=== PATIENT | male | born 1985 | race Caucasian/White ===

== ENCOUNTER 2019-11-13 17:53 | Observation (INO) ==
--- NOTE | 2019-11-13 18:24 | ERNOTE ---
Abdominal HPI - General Chief Complaint: Abdominal Pain Time Seen by Provider: 11/13/19 18:10 Source: patient Exam Limitations: no limitations - Immun/Allergies/Home Medications Allergies/Adverse Reactions: Allergies No Known Allergies Allergy (Unverified 12/29/12 17:30) Home Medications: HOME MEDICATIONS NK [No Home Medication] 12/29/12 [Last Taken Unknown] - History of Present Illness Narrative: Patient is here for abdominal pain. He states that he woke up at 3 AM and noticed some epigastric pain, the pain is dull and mild at rest, worse with deep breaths or certain movements. He denies any nausea or vomiting, has a decreased appetite, denies any diarrhea. He never had similar symptoms, no prior abdominal issues, no other recent medical problems. Date (Duration): 11/13/19 Time (Timing): 03:00 Timing: constant Quality: mild, dullness Activities at Onset: sleep Modifying Factors - (Improves): Present: rest, other - shallow breathing Modifying Factors - (Worsens): Present: breathing, movement Associated Symptoms: Absent: back pain, chest pain, fever/chills, nausea, shortness of breath Prior Abdominal Problems: Present: none. Absent: recent trauma, similar symptoms Prior Treatment: Absent: recently seen, currently on antibiotics Review of Systems - Review of Systems Constitutional: Absent: recent illness, fever ENT: Absent: nose congestion, nasal drainage, sore throat Cardiology: Absent: chest pain Gastrointestinal/Abdominal: Present: See HPI. Absent: nausea, vomiting Genitourinary: Absent: frequency, dysuria Musculoskeletal: Absent: back pain Neurological: Absent: headache, weakness, numbness Medical History (Last Reviewed 11/13/19 @ 18:23 by Farhana Omer MD) No pertinent past medical history Surgical History: Surgical History (Last Reviewed 11/13/19 @ 18:23 by Farhana Omer MD) Hx of left knee surgery Family History: Family History (Last Updated 11/13/19 @ 18:09 by Minnie Griffin RN) Other Cancer Diabetes Social History: Tobacco: Smoking Status: Never smoker Physical Exam - Physical Exam General Appearance: Present: wd/wn, alert, no apparent distress Respiratory: Present: no respiratory distress, normal breath sounds, no accessory muscle use, chest nontender, lungs clear Cardiovascular/Chest: Present: regular rate, rhythm, no murmur Gastrointestinal/Abdominal: Present: normal bowel sounds, nondistended, soft, tenderness - epigastric. Absent: guarding, rebound Back Exam: Present: normal inspection, no CVA tenderness, no vertebral tenderness Extremity Exam: Present: no edema Neurological Exam: Present: alert, oriented, normal mood/affect Skin Exam: Present: normal color, warm/dry Progress - Results and Orders Patient's Lab Results:: I have reviewed the patient's lab results. - Vital Signs Patient's Vital Signs:: I have reviewed the patient's vital signs. Vital Signs: Vital Signs 11/13/19 18:03 Temperature 37.1 C Pulse Rate 82 Respiratory Rate 20 Blood Pressure 150/99 H O2 Sat by Pulse Oximetry 98 - X-Ray X-Ray #1 X-Ray: abdomen - no acute changes Interpretation: Interp. by me - Progress/Reassessment Chief Complaint: Abdominal Pain Progress Note-Subjective: 11/13/19 19:39 discussed test results, patient started to feel light headed just prior to me coming in the room, rates pain as mild discussed need for hydration and staying NPO and recommended admission, patient agreed 11/13/19 19:[address] Fowler, okay to admit for observation for pancreatitis Departure Clinical Impression: Pancreatitis Qualifiers: Chronicity: acute Pancreatitis type: unspecified pancreatitis type Acute oneal creatitis complication: unspecified Qualified Code(s): K85.90 - Acute pancreatitis without necrosis or infection, unspecified - Departure Disposition: Home self-care Condition: Stable
[2019-11-13 18:33] LABS: Urine Appearance Clear (CLEAR); Urine Bilirubin Negative (NEGATIVE); Urine Blood Negative /ul (NEGATIVE); Urine Color Yellow; Urine Ketone Negative (NEGATIVE); Urine Protein Negative (NEGATIVE); Urine Urobilinogen Normal (NORMAL); Urine pH 7.5 pH (5.0-7.0)
[2019-11-13 18:34] LABS: Urine Bacteria None Seen; Urine Nitrite Negative (NEGATIVE); Urine RBC None Seen /hpf (0-5); Urine WBC 0-5 /hpf (0-5)
[2019-11-13 18:51] LABS: Hematocrit 47.4 % (42.0-52.0); Hemoglobin 15.9 gm/dL (13.5-18.0); Mean Corpuscular Hemoglobin 29.2 pg (27-31); Mean Corpuscular Hgb Conc 33.5 g/dl (32-36); Mean Platelet Volume 9.3 fl (8-11.3); Neutrophil # 8.8 K/mm3 (1.3-6.0); Neutrophil % 75.6 % (42-75.0); Platelet Count 240 K/mm3 (150-450); Red Blood Count 5.45 M/mm3 (4.7-6.0); Red Cell Distribution Width 12.3 % (11.5-14.0); White Blood Count 11.7 K/mm3 (4.0-10.5)
[2019-11-13 19:01] LABS: Albumin * 4.3 gm/dl (3.4-5.0); Anion Gap 12.6 mmol/L (6.8-13.8); BUN/Creatinine Ratio 12.5 (9.0-21.6); Bilirubin, Total 0.4 mg/dL (0.0-1.1); Ca. Corrected For Albumin 8.9 mg/dL (8.4-10.2); Calcium * 9.5 mg/dL (7.9-10.9); Carbon Dioxide 29.2 mmol/L (24-32.6); Potassium 3.8 mmol/L (3.4-4.6); Total Protein 8.5 gm/dL (6.2-8.2)
[2019-11-13] MEDS ORDERED: NORMAL SALINE 1,000 ML IV ONE ×2 (19:40→20:50)
[2019-11-13] MEDS ORDERED: HYDROmorphone HCL 1 MG/ML DISP.SYRIN IV ONE (19:40)
[2019-11-13] MEDS ORDERED: ONDANSETRON HCL/PF 2 MG/ML VIAL IV PRN (19:53)
[2019-11-13] MEDS ORDERED: HYDROmorphone HCL 1 MG/ML DISP.SYRIN IV PRN (19:53)
[2019-11-13] MEDS ORDERED: ACETAMINOPHEN 325 MG TABLET PO PRN (21:29)
[2019-11-13] MEDS ORDERED: ONDANSETRON HCL 4 MG TABLET PO PRN (21:30)
--- NOTE | 2019-11-13 22:00 | HP ---
Chief Complaint - Chief Complaint Date of Service: 11/13/19 Time of Service: 21:50 Chief Complaint: I have epigastric pain since this morning. History of Present Illness: 33-year-old male with no significant past medical or social history was evaluated in the ER for persistent epigastric pain that started at 3 AM this morning. Patient reports he went to bed in his usual state of health last night but was suddenly awakened with a dull ache in his epigastric region during the night. He denies having this pain before and has no idea what could have led to the development of the symptoms. Patient denies drinking alcohol or smoking or any illicit drug use. He does not take any routine or symptomatic medications. Patient denies any nausea or vomiting or any diarrhea, he also denies any fever or chills. Once in the ER he became lightheaded and was found to be mildly dehydrated. Therefore decision to keep the patient for observation and for treatment with IV hydration and pain medications was made. Medical History (Last Reviewed 11/13/19 @ 21:15 by Paulina Cameron RN) No pertinent past medical history Surgical History: Surgical History (Last Reviewed 11/13/19 @ 21:15 by Paluina Cameron RN) Hx of left knee surgery Family History: Family History (Last Reviewed 11/13/19 @ 21:15 by Paulina Cameron RN) Other Cancer Diabetes Social History: Tobacco: Smoking Status: Never smoker Peds Patient Hx - Developmental: No Pertinent Hx Peds Patient Hx - Medical: No Pertinent Hx Peds Patient Hx - Cardiac/Respiratory: No Pertinent Hx Peds Patient Hx - Surgical: No Surgical History Patient History - Cancer: No Hx of Cancer Review Of Systems (GEN) - Review of Systems Generalized/Overall Review: Present: No Symptoms Reported EENTM: Present: No Symptoms Reported Respiratory: Present: No Symptoms Reported Cardiac: Present: No Symptoms Reported Abdominal: Present: Abdominal Pain Genitourinary: Present: No Symptoms Reported Musculoskeletal: Present: No Symptoms Reported Neurological: Present: No Symptoms Reported Skin: Present: No Symptoms Reported Endocrine: Present: No Symptoms Reported Allergies/Adverse Reactions: Allergies Allergy/AdvReac Type Severity Reaction Status Date / Time No Known Allergies Allergy Unverified 12/29/12 17:30 Home Medications: HOME MEDICATIONS NK [No Home Medication] 12/29/12 [Last Taken Unknown] Exam - Exam Vital Signs: Vital Signs - Last Taken Temp 36.8 C 11/13/19 20:30 Pulse 70 11/13/19 20:30 Resp 17 11/13/19 20:30 BP 149/87 H 11/13/19 20:30 Pulse Ox 98 11/13/19 20:30 Constitutional: Present: Alert, Oriented x3, Cooperative, Well developed, Well nourished, No distress ENT Exam: Present: normal ENT inspection, hearing grossly normal, pharynx normal, TMs normal Eye Exam: bilateral eye: normal inspection, PERRL, EOMI Neck: Present: non-tender, full range of motion, supple, normal inspection, trachea midline Back Exam: Present: normal inspection, no CVA tenderness, no vertebral tenderness Breasts: Present: Exam deferred Respiratory: Present: chest non-tender, lungs clear, normal breath sounds, no respiratory distress, no accessory muscle use Cardiovascular/Chest: Present: normal peripheral pulses, regular rate, rhythm, no chest tenderness, no edema, no gallop, no JVD, no murmur, no rub Peripheral Pulses: femoral (R): 3+, femoral (L): 3+, dorsalis-pedis (R): 3+, dorsalis-pedis (L): 3+ Abdomen: Present: soft, nondistended, no rebound tenderness, no hepatospenomegaly, no masses, tender - Mild epigastric tenderness to palpation, hypoactive /Rectal: Present: Exam deferred Extremity: Present: normal range of motion, non-tender, normal inspection, no pedal edema, no calf tenderness, normal capillary refill, pelvis stable Skin Exam: Present: normal color, warm/dry, no cyanosis Lymphatic: Present: no adenopathy Neurologic: Present: 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, normal cerebellar test, no motor/sensory deficits, alert, normal mood/affect, oriented x 3 Appearance: Present: appropriate appearance, appropriate insight, neat, no memory impairment Eye contact: Present: cooperative, good eye contact, normal speech Thoughts: Present: normal thought pattern, no apparent hallucination Diagnostic Studies: Abnormal Lab Results 11/13/19 11/13/19 Range/Units 18:41 18:41 WBC 11.7 H (4.0-10.5) K/mm3 Immature Gran % (Auto) 0.80 H (0.001-0.429) % Immature Gran # (Auto) 0.09 H (0.000-0.0310) K/mm3 Neutrophils % 75.6 H (42-75.0) % Lymphocytes % 14.9 L (20-51) % Neutrophils # 8.8 H (1.3-6.0) K/mm3 Total Protein 8.5 H (6.2-8.2) gm/dL Amylase 379 H (25-115) U/L Lipase 2791 H (73-393) U/L Laboratory Results WBC 11.7 K/mm3 (4.0-10.5) H 11/13/19 18:41 RBC 5.45 M/mm3 (4.7-6.0) 11/13/19 18:41 Hgb 15.9 gm/dL (13.5-18.0) 11/13/19 18:41 Hct 47.4 % (42.0-52.0) 11/13/19 18:41 MCV 87.0 fl (78-100) 11/13/19 18:41 MCH 29.2 pg (27-31) 11/13/19 18:41 MCHC 33.5 g/dl (32-36) 11/13/19 18:41 RDW 12.3 % (11.5-14.0) 11/13/19 18:41 Plt Count 240 K/mm3 (150-450) 11/13/19 18:41 MPV 9.3 fl (8-11.3) 11/13/19 18:41 Immature Gran % (Auto) 0.80 % (0.001-0.429) H 11/13/19 18:41 Immature Gran # (Auto) 0.09 K/mm3 (0.000-0.0310) H 11/13/19 18:41 Neutrophils % 75.6 % (42-75.0) H 11/13/19 18:41 Lymphocytes % 14.9 % (20-51) L 11/13/19 18:41 Monocytes % 7.0 % (0.0-9) 11/13/19 18:41 Eosinophils % 1.4 % (0.0-3.0) 11/13/19 18:41 Basophils % 0.3 % (0.0-1.0) 11/13/19 18:41 Nucleated RBC % 0.0 k/mm3 (0-1) 11/13/19 18:41 Neutrophils # 8.8 K/mm3 (1.3-6.0) H 11/13/19 18:41 Lymphocytes # 1.74 k/mm3 (1.5-3.5) 11/13/19 18:41 Monocytes # 0.8 k/mm3 (0.0-1.0) 11/13/19 18:41 Eosinophils # 0.2 k/mm3 (0.0-0.7) 11/13/19 18:41 Absolute Basophils 0.0 k/mm3 (0.0-0.1) 11/13/19 18:41 Sodium 141 mmol/L (132-142) 11/13/19 18:41 Plasma Sodium 141 mmol/L (130-142) 11/13/19 18:41 Potassium 3.8 mmol/L (3.4-4.6) 11/13/19 18:41 Chloride 103 mmol/L (97-106) 11/13/19 18:41 Carbon Dioxide 29.2 mmol/L (24-32.6) 11/13/19 18:41 Anion Gap 12.6 mmol/L (6.8-13.8) 11/13/19 18:41 BUN 15 mg/dL (6-23) 11/13/19 18:41 Creatinine 1.20 mg/dL (0.4-1.4) 11/13/19 18:41 Est GFR (Non-Af Amer) 74 mL/min (60-130) 11/13/19 18:41 BUN/Creatinine Ratio 12.5 (9.0-21.6) 11/13/19 18:41 Random Glucose 103 mg/dL (70-110) 11/13/19 18:41 Calcium 9.5 mg/dL (7.9-10.9) 11/13/19 18:41 Calcium Adj for Albumin 8.9 mg/dL (8.4-10.2) 11/13/19 18:41 Total Bilirubin 0.4 mg/dL (0.0-1.1) 11/13/19 18:41 AST 17 U/L (0-48) 11/13/19 18:41 ALT 47 U/L (19-67) 11/13/19 18:41 Alkaline Phosphatase 76 U/L (50-170) 11/13/19 18:41 Total Protein 8.5 gm/dL (6.2-8.2) H 11/13/19 18: Albumin 4.3 gm/dl (3.4-5.0) 11/13/19 18:41 Amylase 379 U/L (25-115) H 11/13/19 18: Lipase 2791 U/L (73-393) H 11/13/19 18: Urine Color Yellow 11/13/19 18: Urine Appearance Clear (CLEAR) 11/13/19 18: Urine pH 7.5 pH (5.0-7.0) 11/13/19 18: Ur Specific [place] 1.020 SP.GR. (1.005-1.030) 11/13/19 18: Urine Protein Negative mg/dL (NEGATIVE) 11/13/19 18: Urine Glucose (UA) Negative mg/dL (NEGATIVE) 11/13/19 18: Urine Ketones Negative mg/dL (NEGATIVE) 11/13/19 18: Urine Blood Negative /ul (NEGATIVE) 11/13/19 18:31 Urine Nitrate Negative (NEGATIVE) 11/13/19 18:31 Urine Bilirubin Negative mg/dl (NEGATIVE) 11/13/19 18: Urine Urobilinogen Normal EU/dl (NORMAL) 11/13/19 18:31 Ur Leukocyte Esterase Negative /ul (NEGATIVE) 11/13/19 18:31 Urine RBC None seen /hpf (0-5) 11/13/19 18: Urine WBC 0-5 /hpf (0-5) 11/13/19 18:31 Ur Epithelial Cells 0-5 /hpf (0-5) 11/13/19 18:31 Urine Bacteria None seen (NONE) 11/13/19 18:31 Urine Culture Comments No culture indicated 11/13/19 18: Assessment/Plan - Narrative Narrative: Patient was evaluated and medical chart was reviewed and decision to admit for observation for diagnosis of acute pancreatitis was made. Labs on admission demonstrated significantly elevated pancreatic enzymes and mild leukocytosis. At the moment the patient appears comfortable but has mild discomfort in his epigastrium. He is currently n.p.o. and receiving IV hydration and pain meds for optimal control of pain. We will reevaluate him in the morning. - Assessment/Plan (1) Acute pancreatitis Problem: Acute Qualifiers: Pancreatitis type: idiopathic (2) Mild dehydration Problem: Acute
[2019-11-13] MEDS: PANTOPRAZOLE SODIUM 40 MG in NORMAL SALINE 100 ML IV SCH (22:12)
[2019-11-14] MEDS: POTASSIUM CHLORIDE 20 MEQ in NORMAL SALINE 1,000 ML IV SCH ×2 (02:56→08:22)
[2019-11-14 07:55] LABS: Amylase * 298 U/L (25-115)
[2019-11-14 08:13] LABS: Lipase 2023 U/L (73-393)
[2019-11-14] MEDS: PANTOPRAZOLE SODIUM 40 MG in NORMAL SALINE 100 ML IV SCH (09:55)
--- NOTE | 2019-11-14 12:02 | DS ---
(1) Acute pancreatitis Problem: Acute Qualifiers: Pancreatitis type: idiopathic (2) Mild dehydration Problem: Resolved Date of Discharge:: 11/14/19 Hospital Course: 33-year-old male admitted for acute pancreatitis and mild dehydration was evaluated at bedside was found to be afebrile and in no acute distress. After treating the patient with aggressive IV hydration and placing him on n.p.o. orders, he reports resolution of his abdominal pain and only has mild discomfort to deep palpation in his epigastric region. He denies any nausea or vomiting. Labs this morning demonstrate a downward trend of his pancreatic enzymes although they remain above normal, however given the patient's clinical improvement we will initiate a low-fat diet to see how he tolerates. If he tolerates the diet we will discharge him home with orders to repeat amylase and lipase levels in 7 days and to follow-up with myself in the internal medicine clinic since he does not have a PCP. Patient was also instructed to keep a low- fat diet for the next few days. Px ate a low fat lunch and tolerated without any issues. Discharge home orders placed. Procedures Performed: none Results and Findings: Lab Pending Results 11/13/19 18:31: Urine Color Yellow, Urine Appearance Clear, Urine pH 7.5, Ur Specific [place] 1.020, Urine Protein Negative, Urine Glucose (UA) Negative, Urine Ketones Negative, Urine Blood Negative, Urine Nitrate Negative, Urine Bilirubin Negative, Urine Urobilinogen Normal, Ur Leukocyte Esterase Negative, Urine RBC None seen, Urine WBC 0-5, Ur Epithelial Cells 0-5, Urine Bacteria None seen, Urine Culture Comments No culture indicated 11/13/19 18:41: WBC 11.7 H, RBC 5.45, Hgb 15.9, Hct 47.4, MCV 87.0, MCH 29.2, MCHC 33.5, RDW 12.3, Plt Count 240, MPV 9.3, Immature Gran % (Auto) 0.80 H, Immature Gran # (Auto) 0.09 H, Neutrophils % 75.6 H, Lymphocytes % 14.9 L, Monocytes % 7.0, Eosinophils % 1.4, Basophils % 0.3, Nucleated RBC % 0.0, Neutrophils # 8.8 H, Lymphocytes # 1.74, Monocytes # 0.8, Eosinophils # 0.2, Absolute Basophils 0.0 11/13/19 18:41: Sodium 141, Plasma Sodium 141, Potassium 3.8, Chloride 103, Carbon Dioxide 29.2, Anion Gap 12.6, BUN 15, Creatinine 1.20, Est GFR (Non-Af Amer) 74, BUN/Creatinine Ratio 12.5, Random Glucose 103, Calcium 9.5, Calcium Adj for Albumin 8.9, Total Bilirubin 0.4, AST 17, ALT 47, Alkaline Phosphatase 76, Total Protein 8.5 H, Albumin 4.3, Amylase 379 H, Lipase 2791 H 11/14/19 07:10: Amylase 298 H, Lipase 2023 H Discharge Location: Home Disposition: Home self-care Condition: Stable Face to Face Encounter completed per [facility] Guidelines: No Discharge Activity: Activity as tolerated Discharge Diet: Low fat/chol Problem Oriented Discharge Instructions to Patient/Family: Acute Pancreatitis, [id number], Dehydration, Adult, [id number] Additional Patient Instructions (free text): We will call you on Thursday with your follow up appointment. Complete Home Medications List: Complete Home Medication List: NK [No Home Medication] 12/29/12 Amb Orders for Discharge: Amylase * Time Frame: 7 Days, Facility: [facility], Location: Laboratory Lipase Time Frame: 7 Days, Facility: [facility], Location: Laboratory
[2019-11-14 15:18] VITALS: BP 116/64
== END 2019-11-14 15:30 | disposition home or self-care (01) ==
LOC: MS 17:53 → ER 17:53 → MS 20:19
PROVIDERS: ADMIT Family Medicine; ATTEND Family Medicine